=== PATIENT | male | born 1985 | race Caucasian/White ===

== ENCOUNTER 2016-08-31 19:18 | Emergency (ER) | payer OTHER ==
[2016-08-31 19:24] VITALS: BP 132/92
--- NOTE | 2016-08-31 19:47 | RAD ---
INDICATION: Left hand pain COMPARISON: None TECHNIQUE: AP, lateral, and oblique views were obtained. FINDINGS: The bony structures, joint spaces, and soft tissues are normal for age. IMPRESSION: NEGATIVE EXAMINATION
--- NOTE | 2016-08-31 19:47 | RAD ---
INDICATION: Left wrist pain COMPARISON: None TECHNIQUE: AP, lateral, and oblique views were obtained. FINDINGS: The bony structures, joint spaces, and soft tissues are normal for age. IMPRESSION: NO ACUTE FRACTURE.
--- NOTE | 2016-08-31 19:47 | RAD ---
INDICATION: Left lower leg pain COMPARISON: None TECHNIQUE: AP, lateral, and oblique views were obtained. FINDINGS: The bony structures, joint spaces, and soft tissues are normal for age. IMPRESSION: NEGATIVE EXAMINATION.
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
== END 2016-08-31 20:34 | disposition home or self-care (01) ==
LOC: ED 19:18
DX: S69.92XA Unspecified injury of left wrist, hand and finger(s), initial encounter (principal); S09.90XA Unspecified injury of head, initial encounter; S39.92XA Unspecified injury of lower back, initial encounter; S89.92XA Unspecified injury of left lower leg, initial encounter; V09.00XA Pedestrian injured in nontraffic accident involving unspecified motor vehicles, initial encounter; Y93.9 Activity, unspecified; Y92.9 Unspecified place or not applicable
CPT/HCPCS: 99282